=== PATIENT | male | born 1955 | race African-American/Black ===

== ENCOUNTER 2021-01-30 06:24 | Emergency (ER) | payer OTHER ==
[~2021-01-30] VITALS: Ht 160 cm; Wt 77.1 kg
[2021-01-30] MEDS ORDERED: TAMS0.4C (07:16)
[2021-01-30] MEDS ORDERED: AVALIDE 300-121 EACH (07:16)
[2021-01-30] MEDS ORDERED: GLUMETZA500 MG (07:16)
== END 2021-01-30 11:27 | disposition home or self-care (01) ==
LOC: ER 06:24
DX: R42 Dizziness and giddiness (principal)

== ENCOUNTER 2023-02-13 20:00 | Emergency (ER) | payer OTHER ==
[~2023-02-13] VITALS: Ht 160 cm; Wt 82.6 kg
[~2023-02-13 20:00] MED LIST: AVALIDE 300-121 EACH; GLUMETZA500 MG; TAMS0.4C
[2023-02-13] MEDS ORDERED: METOPROLOL SUC100 MG PO (20:13)
[2023-02-13] MEDS ORDERED: ATORVASTATIN CA20 MG PO (20:13)
[2023-02-13] MEDS ORDERED: METFORMIN HCL500 M4 PO (20:14)
[2023-02-13] MEDS ORDERED: NORVASC2.5 MG PO (20:14)
[2023-02-13] MEDS ORDERED: OMEPRAZOLE20 MG PO (20:16)
== END 2023-02-13 23:49 | disposition home or self-care (01) ==
LOC: ER 20:00
DX: K29.70 Gastritis, unspecified, without bleeding (principal); I10 Essential (primary) hypertension; E11.9 Type 2 diabetes mellitus without complications; Z79.84 Long term (current) use of oral hypoglycemic drugs
CPT/HCPCS: 36415; 96365; 99283; J3490

== ENCOUNTER 2025-06-27 22:51 | Emergency (ER) | payer OTHER ==
[~2025-06-27] VITALS: Ht 160 cm; Wt 78.0 kg
[~2025-06-27 22:51] MED LIST changes: +ATORVASTATIN CA20 MG PO; +METFORMIN HCL500 M4 PO; +METOPROLOL SUC100 MG PO; +NORVASC2.5 MG PO; +OMEPRAZOLE20 MG PO
[2025-06-28] MEDS ORDERED: METHYLPREDNISOLONE SOD SUCC 125 MG VIAL IV STA (00:01)
[2025-06-28] MEDS ORDERED: KETOROLAC TROMETHAMINE 60 MG VIAL IM STA (00:02)
[2025-06-28] MEDS ORDERED: CEFTRIAXONE SODIUM 1,000 MG VIAL IV STA (00:02)
[2025-06-28] MEDS ORDERED: METHYLPREDNISOLONE SOD SUCC 125 MG VIAL ONE (00:30)
[2025-06-28] MEDS ORDERED: CEFTRIAXONE SODIUM 1,000 MG VIAL ONE (00:30)
[2025-06-28] MEDS ORDERED: KETOROLAC TROMETHAMINE 60 MG VIAL IM ONE (00:30)
[2025-06-28 01:39] LABS: BASO % 0.4 % (0.1-1.2); EOS # 0.07 (0.04-0.54); EOS % 0.9 % (0.7-7.0); LYMPH # 1.68 (1.18-3.74); LYMPH % 21.1 % (19.3-53.1); MEAN PLATELET VOLUME 9.90 fl (9.4-12.4); MONO # 0.98 (0.24-0.82); MONO % 12.3 % (4.7-12.5); NEUT # 5.20 (1.56-6.13); NEUT % 65.2 % (34.0-71.1); RED CELL DISTRIBUTION WIDTH 12.3 % (11.6-14.4)
[2025-06-28 02:03] LABS: COVID-19 AG NEGATIVE (NEGATIVE)
[2025-06-28 02:21] LABS: BUN CREA RATIO 13.0 (7.0-25.0); CREATININE SERUM 0.94 mg/dL (0.70-1.30); GFR 79.34; GLUCOSE FASTING 109.0 mg/dL (65-100); OSMOLALITY SERUM 282.0 MOSM/KG (275-295)
[2025-06-28 02:38] LABS: URINE APPEARANCE Cloudy; URINE BILIRRUBIN Negative (NEGATIVE); URINE BLOOD Trace; URINE COLOR Yellow; URINE GLUCOSE Negative (NEGATIVE); URINE KETONE Negative (NEGATIVE); URINE LEUKOCYTE Negative; URINE NITRATE Negative; URINE PROTEIN Negative (NEGATIVE); URINE UROBILINOGEN 0.2 E.U./dl
[2025-06-28 02:46] LABS: URINE BACTERIA 1.1 uL (0.0-1933); URINE CAST 0.00 uL (0.0-1.40); URINE EPITHELIAL CELLS 0.5 uL (0.0-38.8); URINE RBC 0.2 uL (0.0-20.8); URINE WBC 0.1 uL (0.0-23.2)
[2025-06-28] MEDS ORDERED: ZITHROMAX500 MG PO (02:56)
[2025-06-28] MEDS ORDERED: ALLER-TEC10 MG PO (02:56)
[2025-06-28] MEDS ORDERED: ACETAMINOPHEN500 M2 PO (02:56)
[2025-06-28] MEDS ORDERED: MUCINEX DM ER1 EAC1 PO (02:56)
== END 2025-06-28 03:25 | disposition home or self-care (01) ==
LOC: ER 22:52
PROVIDERS: General Practice
DX: J20.8 Acute bronchitis due to other specified organisms (principal); J06.9 Acute upper respiratory infection, unspecified; Z20.822 Contact with and (suspected) exposure to COVID-19